=== PATIENT | male | born 2000 | race Caucasian/White ===

== ENCOUNTER 2023-01-04 16:20 | Emergency (ER) | payer SELFPAY ==
[~2023-01-04] VITALS: Ht 180.3 cm; Wt 91.0 kg
[2023-01-04 16:26] VITALS: BP 116/74
[2023-01-04] MEDS ORDERED: NAPR500T7 MT (17:49)
[2023-01-04] MEDS ORDERED: ACET-2708 MT (17:49)
== END 2023-01-04 18:27 | disposition home or self-care (01) ==
LOC: ER 16:20
DX: S93.401A Sprain of unspecified ligament of right ankle, initial encounter (principal); W50.2XXA Accidental twist by another person, initial encounter; Y93.89 Activity, other specified; Y92.89 Other specified places as the place of occurrence of the external cause; Y99.8 Other external cause status
CPT/HCPCS: 73610; 73630; 99284; Z7610